=== PATIENT | male | born 1945 | race Caucasian/White ===

== ENCOUNTER 2019-08-19 12:36 | Emergency (ER) | payer MEDICARE, BC ==
[2019-08-19] MEDS ORDERED: Lidocaine 1% PF 5 ML VIAL ONE (13:04)
[2019-08-19] MEDS ORDERED: Adacel (T-DAP) 0.5 ML SYRINGE ONE (13:33)
== END 2019-08-19 13:45 | disposition home or self-care (01) ==
LOC: BURERS 12:36
DX: S61.012A Laceration without foreign body of left thumb without damage to nail, initial encounter (principal); Z87.891 Personal history of nicotine dependence; W31.2XXA Contact with powered woodworking and forming machines, initial encounter
CPT/HCPCS: 12001; 90471; 90715; J2001

== ENCOUNTER 2022-04-14 13:18 | Outpatient (CLI) | payer MEDICARE, BC | END 2022-04-14 13:19 | disposition home or self-care (01) | LOC: BURRAD 13:18 | PROVIDERS: ATTEND Family Medicine | DX: J32.9 Chronic sinusitis, unspecified (principal); R06.02 Shortness of breath; J18.1 Lobar pneumonia, unspecified organism | CPT/HCPCS: 70220; 71046 ==

== ENCOUNTER 2022-04-15 09:49 | Outpatient (CLI) | payer MEDICARE, BC ==
[2022-04-15] MEDS ORDERED: Iopamidol 370 76% 100 ML VIAL FS ONE (09:50)
== END 2022-04-15 09:50 | disposition home or self-care (01) ==
LOC: BURCT 09:49
PROVIDERS: ATTEND Family Medicine
DX: R93.89 Abnormal findings on diagnostic imaging of other specified body structures (principal); R59.0 Localized enlarged lymph nodes; J43.9 Emphysema, unspecified; J98.4 Other disorders of lung
CPT/HCPCS: 71260; Q9967